=== PATIENT | female | born 1955 | race Caucasian/White ===

== ENCOUNTER 2025-03-17 16:41 | Emergency (ER) | payer MEDICARE, BC, SELFPAY ==
[2025-03-17 16:42] VITALS: BMI 27.2
[2025-03-17 16:44] VITALS: BP 170/98
[2025-03-17 17:02] LABS: % Basophils 0.5 % (0-2); % Eosinophils 2.3 % (0-6); % Immature Granulocytes 0.2 % (0-0.5); % Lymphocytes 38.3 % (20.5-51.1); % Monocytes 6.3 % (1.7-9.3); % Neutrophils 52.4 % (42.2-75.2); Absolute Eosinophils 0.2 10^3/uL (0-0.7); Absolute Lymphocytes 3.2 10^3/uL (1.2-3.4); Absolute Monocytes 0.5 10^3/uL (0.1-0.6); Absolute Neutrophils 4.4 10^3/uL (1.4-6.5); Hematocrit 38.1 % (37.0-47.0); Hemoglobin 13.3 g/dL (12.0-16.0); Mean Corp Hgb Conc. 34.9 g/dL (33.0-37.0); Mean Corpuscular Hgb 31.5 pg (27.0-31.0); Mean Corpuscular Volume 90.3 fL (81.0-99.0); Mean Platelet Volume 9.9 fL (7.4-10.4); Nucleated Red Blood Cells % 0 %; Platelet Count 259 10^3/uL (130-400); Red Blood Cell Count 4.22 10^6/uL (4.20-5.40); White Blood Cell Count 8.4 10^3/uL (4.8-10.8)
[2025-03-17 17:21] LABS: ALT (SGPT) 17 U/L (0-35); AST (SGOT) 27 U/L (14-36); Albumin 4.8 g/dl (3.5-5.0); Alkaline Phosphatase 90 U/L (38-126); Blood Urea Nitrogen 13 mg/dl (7-17); Calcium 9.5 mg/dl (8.4-10.2); Carbon Dioxide 23 mmol/L (22-30); Chloride 109 mmol/L (98-107); Glucose 109 mg/dl (70-99); Sodium 139 mmol/L (135-145); Total Bilirubin 0.5 mg/dl (0.2-1.3); Total Protein 7.7 g/dl (6.3-8.2); eGFR > 60.00
[2025-03-17 17:37] VITALS: BP 179/106
[2025-03-17 18:00] VITALS: BP 149/78
--- NOTE | 2025-03-17 18:00 | ED.GENMED ---
History of Present Illness
General
Chief Complaint: Headache
Source: patient
Exam Limitations: none
Time Seen by Provider: 03/17/25 17:25
Nursing documentation reviewed up to this point in time: agreed with
History of Present Illness
History of Present Illness:
Patient with history of migraine headache, presents to ED after an outpatient MRI revealed possible brain mass. Patient states that 3 weeks ago, patient experienced what she thought was her typical migraine headache. However, along with a
headache, patient experienced difficulty with coordination, which has continued. Patient was seen by her primary care physician who ordered an outpatient MRI which revealed aforementioned brain mass. At the time evaluation ED, patient states that
she no longer has headache. Denies dizziness. However, patient states that she has difficult time writing with her dominant right hand and also has experienced difficult time ambulating with sensation of feeling unsteady, especially when walking
backwards. Denies nausea or vomiting. Denies blurred vision. Denies weakness. Denies previous history of similar symptoms. Patient takes aspirin daily.
Review of Systems
Review of Systems
Allergies reviewed?: Yes
All Other Systems: ROS reviewed and negative except as documented in HPI and ROS
Constitutional: Reports no symptoms
Cardiac: Reports no symptoms
ABD/GI: Reports no symptoms
Musculoskeletal: Reports no symptoms
Skin: Reports no symptoms
Neurological: Reports other (lack of coordination)
Phy Exam
Physical Exam
Physical Exam:
Physical Exam
General: no apparent distress, not acutely ill. afebrile
Head: nc/at. eomi
Neck: supple. normal range of motion.
Heart: s1/s2 regular rate and rhythm
Lungs: no acute respiratory distress. clear bilaterally
Abdomen: normal bowel sounds. not tender.
Neuro: alert and oriented x 3. no focal neurological deficits
Skin: no rash
Psychiatric: well kept. interactive and cooperative
Extremities: no edema. no calf tenderness.
Course
Orders/Labs/Results
Orders:
Orders
03/17/25 16:53
Complete Blood Count/With Diff Urgent
Comprehensive Metabolic Panel Urgent
03/17/25 19:22
Nicotine [Nicoderm Transdermal] 7 mg TRANSDERM NOW STA
Abnormal Lab Results
03/17/25
16:53
MCH 31.5 H pg
(27.0-31.0)
Chloride 109 H mmol/L
(98-107)
Creatinine 0.5 L mg/dL
(0.6-1.0)
Glucose 109 H mg/dl
(70-99)
03/17/25 16:53
03/17/25 16:53
Vital Signs
Initial and Last Documented VS:
Initial Vital Signs
Temp Pulse Resp BP Pulse Ox
98.1 F 111 18 170/98 95
03/17/25 16:44 03/17/25 16:44 03/17/25 16:44 03/17/25 16:44 03/17/25 16:44
Last Documented Vital Signs
Temp Pulse Resp BP Pulse Ox
98.1 F 87 20 131/94 97
03/17/25 16:44 03/17/25 23:21 03/17/25 23:21 03/17/25 23:21 03/17/25 23:21
MDM/Problems Addressed
MDM/Problems Addressed:
Patient brain MRI report reviewed and discussed with patient/family. Pt requests contacting [facility].
Discussed with neurosx, , @ [facility], who recommends transfer to [place] for expedited workup/evaluation. Does not recommend any acute treatment at this time.
Transfer consent on the chart. Patient otherwise remains afebrile, hemodynamically stable, and grossly neurologically intact.
*Pulse Oximetry
SaO2: 96
Oxygen Mode of Delivery: Room air
Patient hypoxic: no
*Critical Care Note
Total Time (30-74mins, 75-104mins- exclusive of procedures): Not Applicable
ED Attending Note
-
Portions of this chart may have been created with voice recognition software.� Occasional wrong word or��sound alike� substitutions may have occurred due to the inherent limitations of voice recognition software.
Discharge Plan
Departure
Patient Disposition: Acute Care Hospital
Date of Disposition: 03/17/25
Time of Disposition: 19:40
Discharge Problem:
Brain mass
Hospital Transfer
Other hospital: [facility]
I certify that the patient requires transfer: Yes
Discussed case with accepting physician:
Reason for transfer: higher level of care, medical necessity, availability of service and specialties available
Interventions
Interventions:
*Risk Screen - Suicide Last Done: 03/17/25 16:48
*General Assessment Last Done: 03/17/25 16:48
*Neglect/Abuse Screening Last Done: 03/17/25 16:48
*ED- Fall Risk Assessment Last Done: 03/17/25 23:33
*ED COVID-19 Vaccine History Last Done: 03/17/25 23:33
*Nursing Disposition Last Done: 03/17/25 23:33
ED- Neurological Assessment Last Done: 03/17/25 17:47
Discharge Date and Time
Discharge Date/Time: 03/17/25 23:41
Print Language: GREENLANDIC
[2025-03-17 19:30] VITALS: BP 150/108
[2025-03-17] MEDS: NICODERM TRANSDERMAL 7 MG TRANSDERM (19:44)
[2025-03-17 20:00] VITALS: BP 151/94
[2025-03-17 23:21] VITALS: BP 131/94
== END 2025-03-17 23:41 | disposition short-term general hospital (02) ==
LOC: EMR 16:41
PROVIDERS: EMERGENCY PHYSICIAN Emergency Medicine; FAMILY PHYSICIAN Family Medicine
DX: G93.9 Disorder of brain, unspecified (principal); Z79.82 Long term (current) use of aspirin
CPT/HCPCS: 99285; 80053; 85025